=== PATIENT | female | born 1995 | race African-American/Black ===

== ENCOUNTER 2020-10-19 07:52 | Emergency (ER) | payer MEDICAID ==
[~2020-10-19] VITALS: Ht 175.3 cm; Wt 91.0 kg
[2020-10-19 07:55] VITALS: BP 127/79
[2020-10-19] MEDS ORDERED: BACITRACIN 15GM TUBE TOP ONE (08:15)
== END 2020-10-19 08:57 | disposition home or self-care (01) ==
LOC: ER 07:52
DX: H01.001 Unspecified blepharitis right upper eyelid (principal)
CPT/HCPCS: 99282

== ENCOUNTER 2021-01-27 19:26 | Emergency (ER) | payer MEDICAID ==
[~2021-01-27] VITALS: Ht 175.3 cm; Wt 91.0 kg
[2021-01-27] MEDS ORDERED: LORAZEPAM 1MG TABLET PO ONE (20:15)
[2021-01-27 21:14] LABS: *AMPHETAMINES SCREEN URINE NEGATIVE (NEGATIVE); *BARBITURATES SCREEN URINE NEGATIVE (NEGATIVE); *BENZODIAZEPINES SCREEN URINE NEGATIVE (NEGATIVE); *COCAINE SCREEN URINE NEGATIVE (NEGATIVE); METHADONE URINE SCREEN NEGATIVE (NEGATIVE)
[2021-01-27 21:15] LABS: OPIATES URINE SCREEN NEGATIVE (NEGATIVE); PHENCYCLIDINE URINE SCREEN NEGATIVE (NEGATIVE)
[2021-01-27 21:28] LABS: CANNABINOID URINE SCREEN PRESUMTIVE POSITIVE (NEGATIVE)
[2021-01-27 21:48] VITALS: BP 118/73
== END 2021-01-27 21:49 | disposition home or self-care (01) ==
LOC: ER 19:26
DX: F12.10 Cannabis abuse, uncomplicated (principal); F41.9 Anxiety disorder, unspecified; Z98.890 Other specified postprocedural states
CPT/HCPCS: 80305; 81025; 93005; 99283

== ENCOUNTER 2021-02-04 15:12 | Emergency (ER) | payer MEDICAID ==
[~2021-02-04] VITALS: Ht 175.3 cm; Wt 91.0 kg
[2021-02-04 17:33] LABS: CHLORIDE 111 mEq/L (98-107)
[2021-02-04 17:38] LABS: BASOPHILS % 0.4 % (0.0-2.0); EOSINOPHILS % 1.4 % (0.0-5.0); HEMATOCRIT. 39.6 % (36.0-48.0); HEMOGLOBIN. 13.5 g/dL (12.0-16.0); LYMPHOCYTES % 26.4 % (20.0-50.0); MEAN CORPUSCULAR HEMOGLOBIN 29.6 pg (28.0-32.0); MEAN CORPUSCULAR VOLUME 86.9 fL (81.0-99.0); MEAN PLATELET VOLUME 10.6 fl (7.4-10.4); MONOCYTES % 9.6 % (2.0-8.0); NEUTROPHILS % 62.2 % (40.0-76.0); PLATELET 241 x1000/uL (130-400); RED BLOOD CELL COUNT 4.55 mill/uL (4.2-5.4); RED CELL DISTRIBUTION WIDTH 13.6 % (11.6-14.6)
[2021-02-04 18:09] LABS: HCG SCREEN NEGATIVE
[2021-02-04 20:45] VITALS: BP 119/67
== END 2021-02-04 20:55 | disposition home or self-care (01) ==
LOC: ER 15:12
DX: R07.89 Other chest pain (principal); Z20.822 Contact with and (suspected) exposure to COVID-19; F41.9 Anxiety disorder, unspecified
CPT/HCPCS: 36415; 80053; 81025; 83735; 84703; 85025; 99283; C9803; U0003; U0005

== ENCOUNTER 2021-11-24 23:31 | Emergency (ER) | payer MEDICAID ==
[~2021-11-24] VITALS: Ht 172.7 cm; Wt 91.0 kg
[2021-11-25 00:02] VITALS: BP 129/48
[2021-11-25 00:59] LABS: CLARITY URINE TURBID (CLEAR); COLOR URINE RED (YELLOW); KETONES URINE NEGATIVE (NEGATIVE); LEUKOCYTE ESTERASE URINE 3+ (NEGATIVE); NITRITE URINE POSITIVE (NEGATIVE); OCCULT BLOOD URINE 2+ (NEGATIVE); PROTEIN URINE 2+ (NEGATIVE); SPECIFIC GRAVITY URINE 1.012 (1.005-1.030); UROBILINOGEN URINE 0.2 E.U./dL (0.2-1.0)
[2021-11-25] MEDS ORDERED: ACETAMINOPHEN 325MG TABLET PO STA (01:08)
[2021-11-25] MEDS ORDERED: NAPR-681 PO (02:56)
[2021-11-25] MEDS ORDERED: SULF1TAB48 PO (02:56)
[2021-11-25] MEDS ORDERED: PYR200 PO (02:56)
== END 2021-11-25 03:03 | disposition home or self-care (01) ==
LOC: ER 23:31
DX: N39.0 Urinary tract infection, site not specified (principal); R31.9 Hematuria, unspecified; F12.10 Cannabis abuse, uncomplicated
CPT/HCPCS: 81001; 87210; 99283

== ENCOUNTER 2023-06-06 14:44 | Emergency (ER) | payer MEDICAID ==
[~2023-06-06] VITALS: Ht 172.7 cm; Wt 105.2 kg
[~2023-06-06 14:44] MED LIST: NAPR-681 PO; PYR200 PO; SULF1TAB48 PO
[2023-06-06 15:15] VITALS: BP 131/80; PULSE 87; RESP 16; TEMP 98.1; O2SAT 99
[2023-06-06 17:53] LABS: CLARITY URINE CLOUDY (CLEAR); COLOR URINE YELLOW (YELLOW); GLUCOSE URINE NEGATIVE (NEGATIVE); KETONES URINE NEGATIVE (NEGATIVE); LEUKOCYTE ESTERASE URINE 2+ (NEGATIVE); NITRITE URINE NEGATIVE (NEGATIVE); OCCULT BLOOD URINE NEGATIVE (NEGATIVE); PROTEIN URINE NEGATIVE (NEGATIVE); SPECIFIC GRAVITY URINE 1.015 (1.005-1.030); UROBILINOGEN URINE 0.2 E.U./dL (0.2-1.0)
[2023-06-06 18:11] LABS: BACTERIA URINE 3+; RBC URINE 0-2 /hpf (0-2)
[2023-06-06 18:12] LABS: SQUAMOUS EPITHELIAL CELL URINE 2+ /lpf (RARE/1+)
[2023-06-06] MEDS ORDERED: CIPR-263 MT (18:23)
== END 2023-06-06 18:56 | disposition home or self-care (01) ==
LOC: ER 14:56
DX: N39.0 Urinary tract infection, site not specified (principal); F12.10 Cannabis abuse, uncomplicated
CPT/HCPCS: 81003; 81025; 99283

== ENCOUNTER 2024-07-13 16:42 | Emergency (ER) | payer MEDICAID ==
[~2024-07-13] VITALS: Ht 175.3 cm; Wt 99.8 kg
[~2024-07-13 16:42] MED LIST changes: +CIPR-263 MT
[2024-07-13 16:46] VITALS: O2SAT 98
[2024-07-13 16:50] VITALS: BP 129/54; PULSE 82; RESP 16; TEMP 37.2; O2SAT 98
[2024-07-13] MEDS ORDERED: METR70GE27 VG (18:47)
[2024-07-13 19:12] LABS: CLARITY URINE CLEAR (CLEAR); COLOR URINE YELLOW (YELLOW); GLUCOSE URINE NEGATIVE (NEGATIVE); KETONES URINE 3+ (NEGATIVE); LEUKOCYTE ESTERASE URINE 1+ (NEGATIVE); NITRITE URINE NEGATIVE (NEGATIVE); OCCULT BLOOD URINE NEGATIVE (NEGATIVE); PROTEIN URINE NEGATIVE (NEGATIVE); SPECIFIC GRAVITY URINE 1.017 (1.005-1.030)
[2024-07-13 19:15] LABS: UCG SCREEN NEGATIVE
[2024-07-13 19:21] LABS: BACTERIA URINE 1+; RBC URINE 0-2 /hpf (0-2); SQUAMOUS EPITHELIAL CELL URINE 2+ /lpf (RARE/1+)
[2024-07-16 04:08] LABS: CHLAMYDIA TRACHOMATIS NAA Negative (Negative); NEISSERIA GONORRHOEAE NAA Negative (Negative)
== END 2024-07-13 19:26 | disposition home or self-care (01) ==
LOC: ER 16:42
DX: N89.8 Other specified noninflammatory disorders of vagina (principal); F12.90 Cannabis use, unspecified, uncomplicated; Z98.890 Other specified postprocedural states
CPT/HCPCS: 81003; 81025; 87491; 87591; 99283

== ENCOUNTER 2024-07-20 12:26 | Emergency (ER) | payer MEDICAID ==
[~2024-07-20] VITALS: Ht 175.3 cm; Wt 97.0 kg
[~2024-07-20 12:26] MED LIST changes: +METR70GE27 VG
[2024-07-20 12:39] VITALS: BP 128/91; PULSE 76; RESP 16; TEMP 37.1; O2SAT 100
[2024-07-20 13:25] LABS: CLARITY URINE CLEAR (CLEAR); COLOR URINE YELLOW (YELLOW); GLUCOSE URINE NEGATIVE (NEGATIVE); KETONES URINE 2+ (NEGATIVE); LEUKOCYTE ESTERASE URINE NEGATIVE (NEGATIVE); NITRITE URINE NEGATIVE (NEGATIVE); OCCULT BLOOD URINE NEGATIVE (NEGATIVE); PH URINE 5.5 (4.5-8.0); PROTEIN URINE NEGATIVE (NEGATIVE); UROBILINOGEN URINE 0.2 E.U./dL (0.2-1.0)
[2024-07-20] MEDS ORDERED: FLUC150T46 MT (14:44)
== END 2024-07-20 15:02 | disposition home or self-care (01) ==
LOC: ER 12:26
DX: B37.31 Acute candidiasis of vulva and vagina (principal); F12.90 Cannabis use, unspecified, uncomplicated
CPT/HCPCS: 81003; 81025; 87210; 87491; 87591; 99283